=== PATIENT | male | born 1955 | race African-American/Black ===

== ENCOUNTER 2017-05-25 18:00 | Emergency (ER) | payer BC ==
[2017-05-25 18:38] LABS: #Basophils 0.1 thou/uL (0.0-0.2); #Eosinphils 0.3 thou/uL (0.0-0.7); #Lymphocytes 2.8 thou/uL (1.20-3.40); #Monocytes 0.5 thou/uL (0.11-0.59); #Neutrophils 4.9 thou/uL (1.40-6.50); %Lymphocytes 32.8 % (21.0-51.0); %Neutrophils 57.2 % (42.0-75.0); Hemoglobin 13.4 g/dL (14.0-18.0); Mean Corpuscular HGB CONC 32.4 g/dL (32.0-36.0); Mean Corpuscular Hemoglobin 27.7 pg (27.0-31.0); Mean Corpuscular Volume 85.5 fl (80.0-94.0); Mean Platelet Volume 8.6 fL (7.4-10.4); Platelet Count 252 thou/uL (130-400); RBC Distribution Width 16.7 % (11.5-14.5); Red Blood Cell (RBC) Count 4.86 mill/uL (4.70-6.10); White Blood Cell (WBC) Count 8.5 thou/uL (4.8-10.8)
[2017-05-25 18:58] LABS: ALT (SGPT) 20 U/L (8-55); AST (SGOT) 14 U/L (5-34); Albumin 3.7 g/dL (3.4-4.8); Alkaline Phosphatase 107 U/L (40-150); Anion Gap 17 mmol/L (10-20); BUN (Urea Nitrogen) 18 mg/dL (8.4-25.7); Bilirubin, Total 0.6 mg/dL (0.2-1.2); CK (CPK) 61 U/L (30-200); Calc. Creatinine Clearance 0 mL/min (70-130); Calcium 9.9 mg/dL (7.8-10.44); Carbon Dioxide 26 mmol/L (23-31); Chloride 102 mmol/L (98-107); Estimated GFR-MDRD 67; Globulin 3.3 g/dL (2.4-3.5); Glucose 277 mg/dL (80-115); Potassium 4.5 mmol/L (3.5-5.1); Sodium 140 mmol/L (136-145)
[2017-05-25 19:03] LABS: CKMB 0.5 ng/mL (0-6.6); Troponin I Less than 0.010 ng/mL (< 0.028)
--- NOTE | 2017-06-22 17:33 | EKG ---
Test Reason : DIZZINESS Blood Pressure : / mmHG Vent. Rate : 096 BPM Atrial Rate : 096 BPM P-R Int : 196 ms QRS Dur : 100 ms QT Int : 362 ms P-R-T Axes : 054 -37 035 degrees QTc Int : 457 ms Normal sinus rhythm Left axis deviation Moderate voltage criteria for LVH, may be normal variant Abnormal ECG Confirmed by JUNITO MENDES, TERESO ([id number]), newspaper editor ADITYA DENIS ([id number]) on 06/22/2017 5:33:11 PM Referred By: Confirmed By:TERESO WILD MD
== END 2017-05-25 21:38 | disposition home or self-care (01) ==
LOC: ERS 18:00
DX: R42 Dizziness and giddiness (principal); R53.1 Weakness; K21.9 Gastro-esophageal reflux disease without esophagitis; E11.9 Type 2 diabetes mellitus without complications; G47.30 Sleep apnea, unspecified; I10 Essential (primary) hypertension; I48.91 Unspecified atrial fibrillation; E66.9 Obesity, unspecified
CPT/HCPCS: 36415; 80053; 82553; 84484; 85025; 93005

== ENCOUNTER 2017-09-25 12:51 | Outpatient (CLI) | payer BC ==
--- NOTE | 2017-09-25 13:42 | RAD ---
PA AND LATERAL CHEST: HISTORY: Dyspnea. FINDINGS: Heart size and mediastinum are within normal limits. Lungs are clear of any infiltrative process. IMPRESSION: No active intrathoracic disease. POS: [facility]
== END 2017-09-25 12:52 | disposition home or self-care (01) ==
LOC: RAD 12:51
PROVIDERS: ATTEND Internal Medicine Pulmonary Disease
DX: R06.00 Dyspnea, unspecified (principal)
CPT/HCPCS: 71046

== ENCOUNTER 2018-01-31 09:12 | Outpatient (CLI) | payer BC ==
--- NOTE | 2018-01-31 10:49 | HP ---
DATE OF SERVICE: 01/31/2018 CHIEF COMPLAINT: Ulcer to the left great toe. HISTORY OF PRESENT ILLNESS: A 62-year-old male who presents today for an ulcer to his left great toe , he noticed that on Saturday. When he saw his perch machine inspector, Dr. Arcos on Saturday, who performed debride ment and get him doing daily dressing changes, put him into a boot and offloading pad in the boot and he has been referred to us for continued care. Denies any nausea, vomiting, fevers or chills. No a cute events since he was seen by Dr. Arcos on Saturday. PAST MEDICAL HISTORY: 1. High blood pressure. 2. Acid reflux. 3. Diabetes. MEDICATIONS: 1. Bystolic. 2. Metformin. PAST SURGICAL HISTORY: 1. Cataract surgery. 2. Pelvic surgery. ALLERGIES: 1. SHELLFISH. 2. IODINE. PAST FAMILY HISTORY AND SOCIAL HISTORY: Noncontributory. REVIEW OF SYSTEMS: Constitutional: Denies nausea, vomiting, fevers or chills. Neurological: Relat es some numbness in the feet. Dermatological: Relates wound to the left great toe. PHYSICAL EXAMINATION: VITAL SIGNS: Temperature 98.7, pulse 101, respirations 20, blood pressure 178/85. CARDIOVASCULAR: Dorsalis pedis, posterior tibial pulses are palpable bilaterally. There is immediat e capillary fill time to all the toes. No ischemic skin changes in bilateral lower extremities. The re is edema noted to bilateral lower extremities. NEUROLOGICAL: Light touch protective threshold is diminished globally bilaterally. DERMATOLOGICAL: Ulcer to left great toe distal tip measuring 1.7 cm x 2.0 cm x 0.1 cm of depth, 50% slough, 50% granulation tissue, minimal serosanguineous drainage. No malodor. There is some slight edema around the area of the wound. No ascending lymphangitis. No signs of bacterial infection. ASSESSMENT: 1. 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 2. Diabetes with peripheral neuropathy. PLAN: 1. No debridement was performed today as this was performed just on Saturday by Dr. Arcos, wound appe ars healthy at this time. 2. We are going to start him with daily Promogran dressing changes with gauze and Coban after cleans ing the wound thoroughly. 3. We are going to continue in the offloading boot with offloading pad. 4. Blood flow appears sufficient for healing. No further intervention required at this time for jyoti t. 5. The patient will follow up with me in 1 week for routine debridements and reevaluation and altera tion of treatment plan if deemed necessary.
[2018-01-31] MEDS ORDERED: Sodium Chloride 0.9% 15 ML NEB ONE (15:31)
== END 2018-01-31 09:13 | disposition home or self-care (01) ==
LOC: WCC 09:12
PROVIDERS: ATTEND Podiatrist Foot & Ankle Surgery
DX: E11.621 Type 2 diabetes mellitus with foot ulcer (principal); L97.529 Non-pressure chronic ulcer of other part of left foot with unspecified severity; E11.42 Type 2 diabetes mellitus with diabetic polyneuropathy
CPT/HCPCS: 97602; 99203; A4218; G0463

== ENCOUNTER 2018-02-07 09:57 | Outpatient (CLI) | payer BC ==
--- NOTE | 2018-02-07 11:16 | PRG ---
DATE OF SERVICE: 02/07/2018 SUBJECTIVE: A 62-year-old male returns today for followup left great toe ulceration. He has been do ing daily collagen, gauze and Coban dressing changes. No acute events since last visit. PHYSICAL EXAMINATION: Ulceration measuring 1.5 cm x 1.6 cm x 0.4 cm with 75% granulation tissue, 25% slough. No periwound erythema, edema or warmth. ASSESSMENT: Non-pressure chronic ulceration of left great toe, progressing well. PLAN: Full thickness debridement of the subcutaneous tissue layer removing all nonviable tissue and biofilm from the wound base down to bleeding granular wound base. Patient to continue with Promogran dressing changes on a daily basis. He will continue with the offloading boot at all times and follo w up with me in 1 week.
[2018-02-08] MEDS ORDERED: Sodium Chloride 0.9% 15 ML NEB ONE (08:45)
== END 2018-02-07 09:58 | disposition home or self-care (01) ==
LOC: WCC 09:57
PROVIDERS: ATTEND Podiatrist Foot & Ankle Surgery
DX: L97.529 Non-pressure chronic ulcer of other part of left foot with unspecified severity (principal)
CPT/HCPCS: 11042

== ENCOUNTER 2018-02-14 08:59 | Outpatient (CLI) | payer BC ==
--- NOTE | 2018-02-14 09:51 | PRG ---
DATE OF SERVICE: 02/14/2018 SUBJECTIVE: A 62-year-old male returns today for followup left great toe ulceration. He has continu ed to wear the boot for offloading purposes. He has had no problems with dressing changes over the l ast week. Denies acute events. PHYSICAL EXAMINATION: Ulceration to the left great toe measuring 1.3 cm x 1.4 cm x 0.1 cm of depth. There is a central tunnel which is about 0.5 cm of depth. It does not probe all the way to bone, al though it is close. There is soft tissue between the tunnel and the bone. 75% granulation tissue, 2 5% slough. No periwound erythema, edema or warmth. ASSESSMENT: Non-pressure chronic ulceration to the left great toe. PLAN: 1. Full thickness debridement of subcutaneous tissue layer removing all nonviable tissue and biofilm from the wound base down to bleeding granular wound base. 2. We are going to continue with daily Promogran dressing changes and have him start packing some of the collagen into the tunnel as well. 3. He will follow up with me in 1 week.
[2018-02-14] MEDS ORDERED: Sodium Chloride 0.9% 15 ML NEB ONE (15:55)
== END 2018-02-14 09:00 | disposition home or self-care (01) ==
LOC: WCC 08:59
PROVIDERS: ATTEND Podiatrist Foot & Ankle Surgery
DX: L97.529 Non-pressure chronic ulcer of other part of left foot with unspecified severity (principal)
CPT/HCPCS: 11042; 36415; 80048; A4218

== ENCOUNTER 2018-02-21 09:33 | Outpatient (CLI) | payer BC ==
--- NOTE | 2018-02-21 12:36 | PRG ---
DATE OF SERVICE: 02/21/2018 SUBJECTIVE: This is a 62-year-old male who presents today for followup left great toe ulceration. W e have been doing daily Promogran, gauze and Coban dressing changes. He states that about 2 days ago he noticed some discoloration to the toe and some peeling skin. He denies any nausea, vomiting, fev ers or chills at this time. PHYSICAL EXAMINATION: Left great toe maintains a wound on the distal aspect of the toe, although we have had black skin changes on the dorsal aspect of the entirety of the toe. The skin is beginning t o slough on debridement. The entirety of the skin has sloughed away from the hallux interphalangeal joint distally. The wound has a tunnel which goes directly to the bone. The bone is soft at the tip of the distal phalanx. There is some malodor and a small amount of purulent drainage from this area . The skin changes and discoloration stopped at the metatarsophalangeal joint do not continue on to the foot. There are no areas of fluctuance on the foot to indicate deep tissue abscess. No ascendin g lymphangitis. ASSESSMENT: 1. Non-pressure chronic ulceration to the left great toe with necrosis of bone and gangrenous change s to the left great toe. 2. Diabetes with peripheral neuropathy. PLAN: I am having the patient admitted to the hospital for IV antibiotics. We are going to obtain x -ray and MRI. He most likely will require surgical debridement, most likely amputation of the left g reat toe. I have discussed the case with the nurse practitioner in the ER and am having him transfer red over there now. We will follow up with him inpatient.
[2018-02-21] MEDS ORDERED: Sodium Chloride 0.9% 15 ML NEB ONE (15:41)
== END 2018-02-21 09:34 | disposition home or self-care (01) ==
LOC: WCC 09:33
PROVIDERS: ATTEND Podiatrist Foot & Ankle Surgery
DX: E11.621 Type 2 diabetes mellitus with foot ulcer (principal); L97.524 Non-pressure chronic ulcer of other part of left foot with necrosis of bone; E11.40 Type 2 diabetes mellitus with diabetic neuropathy, unspecified
CPT/HCPCS: 36416; A4218

== ENCOUNTER 2018-02-21 10:41 | Inpatient (IN) | payer BC ==
[2018-02-21 11:45] LABS: #Basophils 0.1 thou/uL (0.0-0.2); #Eosinphils 0.3 thou/uL (0.0-0.7); #Lymphocytes 1.3 thou/uL (1.20-3.40); #Monocytes 0.7 thou/uL (0.11-0.59); #Neutrophils 8.2 thou/uL (1.40-6.50); %Basophils 0.5 % (0.0-1.0); %Eosinophils 2.5 % (0.0-10.0); %Lymphocytes 12.7 % (21.0-51.0); %Neutrophils 77.3 % (42.0-75.0); Mean Corpuscular HGB CONC 30.8 g/dL (32.0-36.0); Mean Corpuscular Hemoglobin 25.7 pg (27.0-31.0); Mean Corpuscular Volume 83.6 fL (78.0-98.0); Mean Platelet Volume 7.3 fL (7.4-10.4); Platelet Count 366 thou/uL (130-400); RBC Distribution Width 16.8 % (11.5-14.5); Red Blood Cell (RBC) Count 4.28 mill/uL (4.70-6.10); White Blood Cell (WBC) Count 10.6 thou/uL (4.8-10.8)
--- NOTE | 2018-02-21 11:51 | RAD ---
LEFT FOOT THREE VIEWS: History: Toe infection. Comparison: None. FINDINGS: There is a soft tissue defect of the distal pharynx of the large toe with erosion of the cortex media lly. There is extensive soft tissue swelling. Extensive phleboliths in the soft tissues. IMPRESSION: Osteomyelitis of the great toe distal phalanx. POS: [facility]
[2018-02-21 12:13] LABS: ALT (SGPT) 74 U/L (8-55); AST (SGOT) 41 U/L (5-34); Albumin 3.4 g/dL (3.4-4.8); Alkaline Phosphatase 161 U/L (40-150); Anion Gap 13 mmol/L (10-20); BUN (Urea Nitrogen) 11 mg/dL (8.4-25.7); Bilirubin, Total 0.6 mg/dL (0.2-1.2); Calc. Creatinine Clearance 0 mL/min (70-130); Calcium 9.3 mg/dL (7.8-10.44); Carbon Dioxide 25 mmol/L (23-31); Chloride 107 mmol/L (98-107); Estimated GFR-MDRD 86; Globulin 3.5 g/dL (2.4-3.5); Glucose 112 mg/dL (80-115); Potassium 4.1 mmol/L (3.5-5.1); Protein, Total 6.9 g/dL (5.8-8.1); Sodium 141 mmol/L (136-145)
[2018-02-21] MEDS ORDERED: Piperacillin/Tazobactam 4.5 GM VIAL ONE (12:50)
[2018-02-21 13:13] LABS: PTT 41.5 SEC (22.9-36.1); Prothrombin Time 13.5 SEC (12.0-14.7)
--- NOTE | 2018-02-21 14:46 | HP ---
DATE OF ADMISSION: 02/21/2018 PRIMARY CARE PHYSICIAN: Helen Burr M.D. REASON FOR ADMISSION: Left great toe osteomyelitis. HISTORY OF PRESENT ILLNESS: A 62-year-old male who has multiple medical problems in cluding diabetes, hypertension, dyslipidemia, morbid obesity and gastroesophageal reflux disease who has ulcer over left great toe for the last 3 weeks. The patient is following the Wound Care team for the last 3 weeks. He is going to Wound Care team every week. The patient reports that he first ketty mona saw his food dehydrator operator, Dr. Arcos and he had minor ulcer. At that time, minor debridement was performe d by him and subsequently he was getting wound care through our hospital. The patient is not sure ho w he got this ulcer on the great toe, but he attributes to his boot. He had no fever or chills, but he noticed that a foul smelling purulent material was draining from the great toe and it was not impr oving. Today, the patient was evaluated at wound care team and they did x-ray, which was consistent with lef t great toe osteomyelitis. The patient was sent to emergency room from [facility] and now we are admitting for left great toe osteomyelitis. The patient will need surgery. PAST MEDICAL HISTORY: Diabetes type 2, morbid obesity, hypertension, dyslipidemia, gastroesophageal reflux disease, sleep apnea, paroxysmal atrial fibrillation. PAST SURGICAL HISTORY: Right knee surgery, ablation for atrial fibrillation. PAST PSYCHIATRIC HISTORY: Reviewed and negative. SOCIAL HISTORY: The patient is a former smoker. He quit smoking more than 20 years ago. He denies any alcohol or other illicit drug abuse. He is working as a shift supervisor manager food beverage. FAMILY HISTORY: Diabetes, hypertension runs among several family members. No family history of marina nary artery disease, stroke or cancer. EMERGENCY ROOM COURSE: The patient has received vancomycin, Zosyn and IV fluid. ALLERGIES: IODINE and SHELLFISH. CURRENT HOME MEDICATIONS: Zocor 20 mg p.o. daily, Bystolic 20 mg twice daily, amlodipine 10 mg p.o. daily, aspirin 325 mg p.o. daily, metformin 500 mg p.o. b.i.d. REVIEW OF SYSTEMS: The following complete review of systems was negative, unless otherwise mentioned in the HPI or below: Constitutional: Weight loss or gain, ability to conduct usual activities. Sk in: Rash, itching. Eyes: Double vision, pain. ENT/Mouth: Nose bleeding, neck stiffness, pain, te nderness. Cardiovascular: Palpitations, dyspnea on exertion, orthopnea. Respiratory: Shortness of breath, wheezing, cough, hemoptysis, fever or night sweats. Gastrointestinal: Poor appetite, abdom inal pain, heartburn, nausea, vomiting, constipation, or diarrhea. Genitourinary: Urgency, frequenc y, dysuria, nocturia. Musculoskeletal: Pain, swelling. Neurologic/Psychiatric: Anxiety, depressio n. Allergy/Immunologic: Skin rash, bleeding tendency. Please see my HPI for pertinent positive and negative. All other review of systems reviewed and negative except as mentioned in the HPI. PHYSICAL EXAMINATION: VITAL SIGNS: Currently, blood pressure 147/77, pulse 87, respiratory rate 18, temperature 98.1, satu ration 100% on room air, weight 167.3 kilograms. GENERAL: The patient is currently alert and awake, in no obvious acute distress. HEAD: Normocephalic, atraumatic. EYES: Pupils round and reactive to light. Extraocular muscles intact. ENT: Oropharynx within normal limits. Moist mucous membrane. No oral lesion, no pharyngeal erythem a, no exudate. NECK: Supple, no JVD, no thyromegaly, no carotid bruit, no jugular venous distention. LUNGS: Clear to auscultation without any rhonchi or rales. CARDIAC: S1, S2 regular without any murmur. ABDOMEN: Morbid obesity present. Bowel sounds present, nontender, nondistended. No organomegaly, n o mass, no suprapubic tenderness. BACK: Unremarkable. No CVA tenderness. EXTREMITIES: Upper extremities, passive movement of all joints are normal. Lower extremities, bilat eral trace lower extremity edema noted. The patient does have left great toe swollen, tender and heather thematous with serosanguineous fluid noted. Sensation reduced on both feet. NEUROLOGIC: Nonfocal examination. SKIN: No skin rash. HEMATOLOGIC: No lymphadenopathy. PSYCHIATRIC: Normal affect. SIGNIFICANT LABORATORY DATA: X-ray of foot consistent with osteomyelitis of left great toe. BMP, so dium 141, potassium 4.1, chloride 107, carbon dioxide 25, BUN 11, creatinine 1.05, glucose 112, calci um 9.3. LFT, protein 6.9, albumin 3.4, AST 41, ALT 74, alkaline phosphatase 161. CBC, WBC 10.6, hem oglobin 11.0, platelet 366,000. ASSESSMENT: 1. Sepsis due to left great toe osteomyelitis. 2. Diabetic foot infection with cellulitis of left foot. 3. Diabetes type 2. 4. Hypertension. 5. Gastroesophageal reflux disease. 6. Morbid obesity with obstructive sleep apnea. 7. Gastroesophageal reflux disease. PLAN: Full admission to medical floor. Empiric antibiotic therapy with vancomycin and Zosyn. Noemi martinezt will be consulted. The patient will need amputation of left great toe that was discussed with the patient and the patient agreed to proceed. Hyperglycemia protocol treatment. We will verify the patient's home medication and resume while in hospital. Deep venous thrombosis prophylaxis, Lovenox 40 mg subcu daily. Gastrointestinal prophylaxis, Pepcid 20 mg p.o. b.i.d. Code status, the patient is full code. The patient's is surrogate decision maker. Disposition plan based on clinical course. We are expecting the patient's stay in hospital more than 2 midnights. Plan of care discussed with the patient and family member at bedside in the emergency room.
[2018-02-21] MEDS ORDERED: Acetaminophen 325 MG TAB PO PRN ×2 (15:33→15:45)
[2018-02-21] MEDS ORDERED: Diabetic Tussin 200 MG/10 ML UDCUP PO PRN (15:45)
[2018-02-21] MEDS ORDERED: Dextrose 50% Abboject 50 ML SYRINGE SLOW IVP PRN (15:45)
[2018-02-21] MEDS ORDERED: HumaLOG 300 UNITS/3 ML VIAL SC PRN ×2 (15:45)
[2018-02-21] MEDS ORDERED: Eucerin (Mineral Oil/Petrolatum,White) 30 gm Jar TOP PRN (15:45)
[2018-02-21] MEDS ORDERED: Morphine 2 MG/ML SYRINGE SLOW IVP PRN (15:45)
[2018-02-21] MEDS ORDERED: hydrALAZINE 20 MG/ML VIAL SLOW IVP PRN (15:45)
[2018-02-21] MEDS ORDERED: Dextrose 5% in Water 1,000 ML IV PRN (15:45)
[2018-02-21] MEDS ORDERED: Ondansetron PF 4 MG/2 ML Vial IVP PRN (15:45)
[2018-02-21] MEDS ORDERED: Loratadine 10 MG TAB PO PRN (15:45)
[2018-02-21] MEDS ORDERED: Ondansetron ODT 4 MG TAB PO PRN (15:45)
[2018-02-21] MEDS ORDERED: Calcium Carbonate 500 MG ChewTAB PO PRN (15:45)
[2018-02-21] MEDS ORDERED: Artificial Tears 18 DROP/0.9 ML EA EYE PRN (15:45)
[2018-02-21] MEDS ORDERED: Bisacodyl 10 MG SUPP PR PRN (15:45)
[2018-02-21] MEDS ORDERED: Sodium Chloride 0.65% Nasal 44 ML BOT EA NARE PRN (15:45)
[2018-02-21] MEDS ORDERED: Bisacodyl 5 MG TAB PO PRN (15:45)
[2018-02-21] MEDS ORDERED: Senokot S 8.6-50 MG TAB PO PRN (15:45)
[2018-02-21] MEDS ORDERED: Zolpidem Tartrate 5 MG TAB PO PRN (15:45)
[2018-02-21] MEDS ORDERED: Loperamide HCl 2 MG CAP PO PRN (15:45)
[2018-02-21 15:58] VITALS: BMI 44.4
[2018-02-21] MEDS: Piperacillin/Tazobactam 4.5 GM in Sodium Chloride 0.9% 100 ML IVPB SCH (17:30)
[2018-02-21] MEDS: Nebivolol HCl 5 MG TAB PO SCH (20:27)
[2018-02-21] MEDS: Atorvastatin Calcium 40 MG TAB PO SCH (20:27)
[2018-02-21] MEDS: Famotidine 20 MG TAB PO SCH (20:28)
[2018-02-21] MEDS: metFORMIN XR 500 MG TAB PO SCH (20:29)
[2018-02-21] MEDS ORDERED: Lactated Ringer's 1,000 ML IV SCH (23:59)
[2018-02-22] MEDS: Piperacillin/Tazobactam 4.5 GM in Sodium Chloride 0.9% 100 ML IVPB SCH ×5 (00:22→23:19)
[2018-02-22 04:26] LABS: #Eosinphils 0.3 thou/uL (0.0-0.7); #Lymphocytes 1.5 thou/uL (1.20-3.40); #Monocytes 0.9 thou/uL (0.11-0.59); #Neutrophils 6.2 thou/uL (1.40-6.50); %Basophils 0.4 % (0.0-1.0); %Eosinophils 3.6 % (0.0-10.0); %Lymphocytes 16.6 % (21.0-51.0); %Monocytes 9.6 % (0.0-10.0); %Neutrophils 69.8 % (42.0-75.0); Hemoglobin 9.4 g/dL (14.0-18.0); Mean Corpuscular HGB CONC 31.2 g/dL (32.0-36.0); Mean Corpuscular Hemoglobin 26.1 pg (27.0-31.0); Mean Corpuscular Volume 83.8 fL (78.0-98.0); Mean Platelet Volume 7.5 fL (7.4-10.4); Platelet Count 353 thou/uL (130-400); RBC Distribution Width 16.6 % (11.5-14.5); White Blood Cell (WBC) Count 8.9 thou/uL (4.8-10.8)
[2018-02-22 04:55] LABS: Anion Gap 12 mmol/L (10-20); BUN (Urea Nitrogen) 10 mg/dL (8.4-25.7); Calc. Creatinine Clearance 180 mL/min (70-130); Calcium 8.7 mg/dL (7.8-10.44); Carbon Dioxide 25 mmol/L (23-31); Chloride 107 mmol/L (98-107); Estimated GFR-MDRD Greater than 90; Glucose 132 mg/dL (80-115); Potassium 4.3 mmol/L (3.5-5.1); Sodium 140 mmol/L (136-145)
[2018-02-22] MEDS: Nebivolol HCl 5 MG TAB PO SCH ×2 (05:34→20:13)
[2018-02-22] MEDS ORDERED: Bupivacaine PF 0.5% 30 ML VIAL ONE (07:17)
[2018-02-22] MEDS ORDERED: Neomycin-Polymyxin 1 ML AMP ONE ×2 (07:17→08:21)
[2018-02-22] MEDS ORDERED: Fentanyl 100 MCG/2 ML VIAL ONE (07:23)
[2018-02-22 08:06] LABS: ALT (SGPT) 53 U/L (8-55); AST (SGOT) 37 U/L (5-34); Albumin 2.8 g/dL (3.4-4.8); Alkaline Phosphatase 140 U/L (40-150); Bilirubin, Direct 0.3 mg/dL (0.1-0.3); Bilirubin, Total 0.8 mg/dL (0.2-1.2); Protein, Total 6.2 g/dL (5.8-8.1)
[2018-02-22 08:26] LABS: HBCM Index 0.14 S/CO (0-0.79); HBSAg Index 0.19 S/CO (0-0.99); Hep A IgM AB Non-Reactive (NonReactive); Hep A IgM S/CO 0.11 S/CO (0-0.79); Hep B Surf Ag Non-Reactive S/CO (NonReactive); Hep C IgG Ab Non-Reactive (NonReactive); Hep C Index 0.07 S/CO (0-0.79); Hepatitis B Core IgM Abs Non-Reactive (NonReactive)
[2018-02-22] MEDS ORDERED: DAPAGLIFLOZIN PO SCH (09:00)
[2018-02-22] MEDS ORDERED: Non-Formulary Item 1 EACH (Amlodipine Besylate/Benazepril [Amlodipine Besylate/Benazepril PO SCH (09:00)
[2018-02-22] MEDS ORDERED: Ondansetron HCl/PF 4 MG/2 ML Vial IVP PRN (09:14)
--- NOTE | 2018-02-22 09:37 | PDOC.PN ---
- Subjective Encounter Start Date: 02/22/18 Encounter Start Time: 13:22 -: old records requested/rev Patient seen and examined. No new complaints. No overnight events s/p toe amputation - Objective Resuscitation Status: Resuscitation Status FULL:Full Resuscitation MAR Reviewed: Yes Vital Signs & Weight: Vital Signs (12 hours) Temp Pulse Resp BP Pulse Ox 02/22/18 08:00 95 02/22/18 07:27 98.0 F 85 18 175/92 H 95 02/22/18 05:48 93 L 02/22/18 03:59 98.7 F 82 20 168/78 H 94 L 02/22/18 00:00 98.9 F 84 20 162/76 H 94 L 02/21/18 23:00 94 L Weight Weight 365 lb 8 oz Result Diagrams: 02/22/18 03:50 02/22/18 03:50 Additional Labs: Accuchecks 02/21/18 17:00 POC Glucose 120 H Phys Exam - Physical Examination Constitutional: NAD HEENT: PERRLA, moist MMs, sclera anicteric Neck: no JVD, supple Respiratory: no wheezing, no rales, no rhonchi Cardiovascular: RRR, no significant murmur, no rub Gastrointestinal: soft, non-tender, no distention, positive bowel sounds Musculoskeletal: no edema, pulses present left toe with dressing Neurological: non-focal, normal sensation, moves all 4 limbs Lymphatic: no nodes Psychiatric: normal affect, A&O x 3 Skin: no rash, normal turgor Dx/Plan (1) Acute osteomyelitis of toe of left foot Code(s): M86.172 - OTHER ACUTE OSTEOMYELITIS, LEFT ANKLE AND FOOT Status: Acute (2) Abnormal LFTs Code(s): R94.5 - ABNORMAL RESULTS OF LIVER FUNCTION STUDIES Status: Acute Comment: s/p toe amputation, left great toe (3) Anemia, normocytic normochromic Code(s): D64.9 - ANEMIA, UNSPECIFIED Status: Chronic (4) Diabetes type 2, controlled Code(s): E11.9 - TYPE 2 DIABETES MELLITUS WITHOUT COMPLICATIONS Status: Chronic (5) Dyslipidemia Code(s): E78.5 - HYPERLIPIDEMIA, UNSPECIFIED Status: Chronic (6) GERD (gastroesophageal reflux disease) Code(s): K21.9 - GASTRO-ESOPHAGEAL REFLUX DISEASE WITHOUT ESOPHAGITIS Status: Chronic (7) Hypertension Code(s): I10 - ESSENTIAL (PRIMARY) HYPERTENSION Status: Chronic (8) Morbid obesity with BMI of 40.0-44.9, adult Code(s): E66.01 - MORBID (SEVERE) OBESITY DUE TO EXCESS CALORIES; Z68.41 - BODY MASS INDEX (BMI) 40.0-44.9, ADULT Status: Chronic (9) ANDREW (obstructive sleep apnea) Code(s): G47.33 - OBSTRUCTIVE SLEEP APNEA (ADULT) (PEDIATRIC) Status: Chronic Comment: on CPAP - Plan cont current plan of care, plan discussed w/ family, continue antibiotics * continue post operative wound care * pain control * continue vancomycin and zosyn * home medication reconciled * medication reviewed as below * symptomatic treatment * follow culture result. Review of Systems - Review of Systems ENT: negative: Ear Pain, Ear Discharge, Nose Pain, Nose Discharge, Nose Congestion, Mouth Pain, Mouth Swelling, Throat Pain, Throat Swelling, Other Respiratory: negative: Cough, Dry, Shortness of Breath, Hemoptysis, SOB with Excertion, Pleuritic Pain, Sputum, Wheezing Cardiovascular: negative: chest pain, palpitations, orthopnea, paroxysmal nocturnal dyspnea, edema, light headedness, other Gastrointestinal: negative: Nausea, Vomiting, Abdominal Pain, Diarrhea, Constipation, Melena, Hematochezia, Other Genitourinary: negative: Dysuria, Frequency, Incontinence, Hematuria, Retention , Other Musculoskeletal: negative: Neck Pain, Shoulder Pain, Arm Pain, Back Pain, Hand Pain, Leg Pain, Foot Pain, Other Skin: negative: Rash, Lesions, Odin, Bruising, Other - Medications/Allergies Allergies/Adverse Reactions: Allergies Allergy/AdvReac Type Severity Reaction Status Date / Time iodine Allergy Verified 12/13/15 16:12 latex Allergy Verified 12/13/15 16:12 shellfish derived Allergy Verified 12/13/15 16:12 Medications: Current Medications Acetaminophen (Tylenol) 650 mg PO Q4H PRN PRN Reason: Headache/Fever/Mild Pain (1-3) Hydrocodone Bitart/Acetaminophen ([place] 5/325) 1 tab PO Q4H PRN PRN Reason: Moderate Pain (4-6) Amlodipine Besylate (Norvasc) 10 mg PO DAILY [facility] Artificial Tears (Tears Naturale) 2 drop EA EYE PRN PRN PRN Reason: Dry Eyes Aspirin (Aspirin) 325 mg PO QAM [facility] Atorvastatin Calcium (Lipitor) 40 mg PO HS [facility] Last Admin: 02/21/18 20:27 Dose: 40 mg Atorvastatin Calcium (Lipitor) 10 mg PO HS [facility] Benazepril HCl (Lotensin) 40 mg PO QAM [facility] Bisacodyl (Dulcolax) 10 mg PO DAILYPRN PRN PRN Reason: Constipation Bisacodyl (Dulcolax) 10 mg DC DAILYPRN PRN PRN Reason: Constipation Calcium Carbonate (Tums) 1,000 mg PO Q4H PRN PRN Reason: Heartburn or Indigestion Cholecalciferol (Vitamin D3) 5,000 units PO HS [facility] Dextrose/Water (Dextrose 50%) 25 gm SLOW IVP PRN PRN PRN Reason: Hypoglycemia Enoxaparin Sodium (Lovenox) 40 mg SC 0900 [facility] Famotidine (Pepcid) 20 mg PO BID [facility] Last Admin: 02/21/18 20:28 Dose: 20 mg Fentanyl (Pacu-Sublimaze) 50 mcg SLOW IVP Q10MIN PRN PRN Reason: Moderate to Severe Pain (6-10) Stop: 02/22/18 12:14 Glucagon (Glucagon) 1 mg IM PRN PRN PRN Reason: Hypoglycemia Guaifenesin (Robitussin Sf) 200 mg PO Q4H PRN PRN Reason: Cough Hydralazine HCl (Apresoline) 10 mg SLOW IVP Q4H PRN PRN Reason: SBP > 180 and HR < 70 Dextrose/Water (D5w) 1,000 mls @ 0 mls/hr IV .Q0M PRN PRN Reason: Hypoglycemia Piperacillin Sod/Tazobactam (Sod 4.5 gm/ Sodium Chloride) 100 mls @ 200 mls/hr IVPB Q6HR [facility] Last Admin: 02/22/18 05:33 Dose: 100 mls Vancomycin HCl 2 gm/ Sodium (Chloride) 500 mls @ 250 mls/hr IVPB 0200,1400 [facility] Last Admin: 02/22/18 01:35 Dose: 500 mls Insulin Human Lispro (Humalog) 0 units SC .MODERATE SLIDING SC PRN PRN Reason: Moderate Correctional Scale Insulin Human Lispro (Humalog) 0 units SC .BEDTIME SLIDING SC PRN PRN Reason: Bedtime Correctional Scale Iron/Minerals/Multivitamins (Theragran M) 1 tab PO HS [facility] Loperamide HCl (Imodium) 2 mg PO PRN PRN PRN Reason: Diarrhea/Loose Stools Loratadine (Claritin) 10 mg PO DAILYPRN PRN PRN Reason: Sinus Symptoms Metformin HCl (Glucophage Xr) 1,000 mg PO BID [facility] Last Admin: 02/21/18 20:29 Dose: Not Given Mineral Oil/White Petrolatum (Eucerin Cream) 0 gm TOP BIDPRN PRN PRN Reason: Dry Skin Miscellaneous Medication (Pharmacy To Dose) 1 each IVPB ONE PRN PRN Reason: Pharmacy to dose Stop: 03/03/18 15:46 Morphine Sulfate (Morphine) 2 mg SLOW IVP Q4H PRN PRN Reason: Pain Nebivolol (Bystolic) 20 mg PO BID [facility] Last Admin: 02/22/18 05:34 Dose: 20 mg (Dapagliflozin (Farxiga) 0 tab PO QAM [facility] Non-Formulary Medication (Insulin Glargine,Hum.Rec.Anlog [Basaglar Kwikpen U-100 ]) 80 unit SQ AC [facility] Ondansetron HCl (Zofran Odt) 4 mg PO Q6H PRN PRN Reason: Nausea/Vomiting Ondansetron HCl (Zofran) 4 mg IVP Q6H PRN PRN Reason: Nausea/Vomiting Ondansetron HCl (Pacu-Zofran) 4 mg IVP ONE PRN PRN Reason: Nausea/Vomiting Stop: 02/22/18 12:14 Saccharomyces Boulardii (Florastor) 250 mg PO DAILY [facility] Senna/Docusate Sodium (Senokot S) 2 tab PO BID PRN PRN Reason: Constipation Sodium Chloride ([place] Nasal Christmas 0.65%) 0 ml EA NARE QIDPRN PRN PRN Reason: Nasal Congestion Zolpidem Tartrate (Ambien) 5 mg PO HSPRN PRN PRN Reason: Insomnia
--- NOTE | 2018-02-22 09:39 | OP ---
DATE OF PROCEDURE: 02/21/2018 SURGEON: Abdelrahman Driver DPM. PREOPERATIVE DIAGNOSES: Osteomyelitis, gangrene left hallux. POSTOPERATIVE DIAGNOSES: Osteomyelitis, gangrene left hallux. PROCEDURES PERFORMED: Amputation of left hallux through the first metatarsal. ANESTHESIA: Local with monitored anesthetic care. HEMOSTASIS: Pneumatic tourniquet about the left ankle at 250 mmHg. ESTIMATED BLOOD LOSS: Less than 5 mL. MATERIALS: 1. 4-0 Vicryl. 2. 3-0 nylon. INJECTABLES: 10 mL of 0.5% Marcaine plain preoperatively. COMPLICATIONS: None. SUMMARY OF PROCEDURE: Patient was brought into the operative suite, placed supine on the operative t able. Time out performed identifying correct patient, procedure, and operative site. A well-padded tourniquet placed about the left ankle. Foot was prepped and draped in an aseptic manner. Tournique t was raised to 250 mmHg. A fishmouth incision made around the first metatarsophalangeal joint, ampu tating the toe fully through the first metatarsophalangeal joint. A culture was taken from the dista l phalanx bone and sent for Gram stain, aerobic and anaerobic cultures. The remainder of the toe ernesto l be sent to pathology for gross microscopic evaluation. Soft tissues surrounding the first metatars ophalangeal joint appeared healthy without signs of infection or liquefaction. The head of the first metatarsal was resected with power saw and the sesamoid apparatus was removed in order to facilitate closure of the wound. The wound was then irrigated with 3 liters of normal saline mixed with 3 unit s of by pulsed lavage. Subcutaneous tissues were then reapproximated with 4-0 Vicryl and the skin with 3-0 nylon. Bandages applied including Xeroform gauze, roll gauze, and Link wrap. Tourniquet wa s released noting immediate hyperemia to the distal aspect of all remaining toes. The patient tolera lara the procedure and anesthesia well and was transferred out of the operative suite with vital signs stable and neurovascular status intact to the left lower extremity. He will be transferred back to his room. Once the sensitivities from the cultures are obtained, he can be switched to p.o. antibiot ics for the foot. He will be stable to be discharged home. He will follow up with me in the [facility] in 1 week.
[2018-02-22] MEDS ORDERED: Lidocaine 1% PF 5 ML VIAL ONE (10:16)
[2018-02-22] MEDS ORDERED: PROPOFOL 200 MG/20 ML VIAL ONE (10:16)
[2018-02-22] MEDS ORDERED: Ondansetron PF 4 MG/2 ML Vial ONE (10:16)
--- NOTE | 2018-02-22 10:29 | RAD ---
LEFT FOOT 2 VIEWS: Date: 02/22/18 HISTORY: Amputation. COMPARISON: Radiograph prior day. FINDINGS: There is amputation through the great toe metatarsal neck. Expected postoperative gas and edema. IMPRESSION: Satisfactory postoperative appearance. POS: [facility]
[2018-02-22] MEDS: Amlodipine 10 MG TAB PO SCH (10:59)
[2018-02-22] MEDS: Saccharomyces boulardii 250 MG CAP PO SCH (10:59)
[2018-02-22] MEDS: Aspirin 325 MG TAB PO SCH (11:00)
[2018-02-22] MEDS: Famotidine 20 MG TAB PO SCH ×2 (11:02→20:12)
[2018-02-22] MEDS: Enoxaparin Sodium 40 MG/0.4 ML SYRINGE SC SCH (11:03)
[2018-02-22] MEDS: metFORMIN XR 500 MG TAB PO SCH ×2 (12:32→17:44)
[2018-02-22] MEDS: HYDROcodone/Acetaminophen 5/325 mg Tablet PO PRN ×2 (12:35→17:37)
[2018-02-22] MEDS: Atorvastatin Calcium 10 MG TAB PO SCH (20:12)
[2018-02-22] MEDS: Atorvastatin Calcium 40 MG TAB PO SCH (20:12)
[2018-02-22] MEDS: Multivitamin W/ Minerals 1 TAB PO SCH (20:13)
[2018-02-23 01:26] LABS: Vancomycin, Trough 29.4 ug/mL
[2018-02-23] MEDS: HYDROcodone/Acetaminophen 5/325 mg Tablet PO PRN ×3 (02:06→17:30)
[2018-02-23] MEDS: Piperacillin/Tazobactam 4.5 GM in Sodium Chloride 0.9% 100 ML IVPB SCH ×3 (05:36→17:31)
[2018-02-23] MEDS: Aspirin 325 MG TAB PO SCH (08:13)
[2018-02-23] MEDS: Amlodipine 10 MG TAB PO SCH (08:14)
[2018-02-23] MEDS: Famotidine 20 MG TAB PO SCH ×2 (08:14→20:50)
[2018-02-23] MEDS: metFORMIN 500 MG TAB PO SCH ×2 (08:14→17:30)
[2018-02-23] MEDS: Enoxaparin Sodium 40 MG/0.4 ML SYRINGE SC SCH (08:16)
[2018-02-23] MEDS: Nebivolol HCl 5 MG TAB PO SCH ×2 (08:21→20:50)
[2018-02-23] MEDS: Saccharomyces boulardii 250 MG CAP PO SCH (08:29)
[2018-02-23] MEDS ORDERED: [UNRECOGNIZED DRUG - OTHER] SQ SCH (09:00)
[2018-02-23] MEDS ORDERED: INSULIN GLARGINE HUM REC ANLOG SQ SCH (09:00)
--- NOTE | 2018-02-23 10:32 | PDOC.PN ---
- Subjective Encounter Start Date: 02/23/18 Encounter Start Time: 08:50 Patient seen and examined. No new complaints. No overnight events - Objective Resuscitation Status: Resuscitation Status FULL:Full Resuscitation MAR Reviewed: Yes Vital Signs & Weight: Vital Signs (12 hours) Temp Pulse Resp BP BP Pulse Ox 02/23/18 08:15 156/70 H 02/23/18 08:14 83 156/70 H 02/23/18 08:00 98.9 F 83 18 156/70 H 95 02/23/18 04:00 94 L Weight Admit Weight 365 lb 8 oz Weight 365 lb 8 oz Result Diagrams: 02/22/18 03:50 02/22/18 03:50 Additional Labs: Accuchecks 02/23/18 02/23/18 02/22/18 05:35 02:03 21:11 POC Glucose 242 H 254 H 313 H 02/22/18 02/22/18 02/22/18 20:10 16:21 12:03 POC Glucose 276 H 287 H 220 H Phys Exam - Physical Examination Constitutional: NAD HEENT: PERRLA, moist MMs, sclera anicteric Neck: no JVD, supple Respiratory: no wheezing, no rales, no rhonchi Cardiovascular: RRR, no significant murmur, no rub Gastrointestinal: soft, non-tender, no distention, positive bowel sounds Musculoskeletal: no edema, pulses present left foot with dressing Neurological: non-focal, normal sensation, moves all 4 limbs Psychiatric: normal affect, A&O x 3 Skin: no rash, normal turgor Dx/Plan (1) Acute osteomyelitis of toe of left foot Code(s): M86.172 - OTHER ACUTE OSTEOMYELITIS, LEFT ANKLE AND FOOT Status: Acute (2) Abnormal LFTs Code(s): R94.5 - ABNORMAL RESULTS OF LIVER FUNCTION STUDIES Status: Acute Comment: s/p toe amputation, left great toe (3) Anemia, normocytic normochromic Code(s): D64.9 - ANEMIA, UNSPECIFIED Status: Chronic (4) Diabetes type 2, controlled Code(s): E11.9 - TYPE 2 DIABETES MELLITUS WITHOUT COMPLICATIONS Status: Chronic (5) Dyslipidemia Code(s): E78.5 - HYPERLIPIDEMIA, UNSPECIFIED Status: Chronic (6) GERD (gastroesophageal reflux disease) Code(s): K21.9 - GASTRO-ESOPHAGEAL REFLUX DISEASE WITHOUT ESOPHAGITIS Status: Chronic (7) Hypertension Code(s): I10 - ESSENTIAL (PRIMARY) HYPERTENSION Status: Chronic (8) Morbid obesity with BMI of 40.0-44.9, adult Code(s): E66.01 - MORBID (SEVERE) OBESITY DUE TO EXCESS CALORIES; Z68.41 - BODY MASS INDEX (BMI) 40.0-44.9, ADULT Status: Chronic (9) ANDREW (obstructive sleep apnea) Code(s): G47.33 - OBSTRUCTIVE SLEEP APNEA (ADULT) (PEDIATRIC) Status: Chronic Comment: on CPAP - Plan cont current plan of care, continue antibiotics * medication reviewed as below * symptomatic treatment * continue wound care * follow on pathology report * continue vancomycin and zosyn. Review of Systems - Review of Systems ENT: negative: Ear Pain, Ear Discharge, Nose Pain, Nose Discharge, Nose Congestion, Mouth Pain, Mouth Swelling, Throat Pain, Throat Swelling, Other Respiratory: negative: Cough, Dry, Shortness of Breath, Hemoptysis, SOB with Excertion, Pleuritic Pain, Sputum, Wheezing Cardiovascular: negative: chest pain, palpitations, orthopnea, paroxysmal nocturnal dyspnea, edema, light headedness, other Gastrointestinal: negative: Nausea, Vomiting, Abdominal Pain, Diarrhea, Constipation, Melena, Hematochezia, Other Genitourinary: negative: Dysuria, Frequency, Incontinence, Hematuria, Retention , Other Musculoskeletal: negative: Neck Pain, Shoulder Pain, Arm Pain, Back Pain, Hand Pain, Leg Pain, Foot Pain, Other Skin: negative: Rash, Lesions, Odin, Bruising, Other - Medications/Allergies Allergies/Adverse Reactions: Allergies Allergy/AdvReac Type Severity Reaction Status Date / Time iodine Allergy Verified 12/13/15 16:12 latex Allergy Verified 12/13/15 16:12 shellfish derived Allergy Verified 12/13/15 16:12 Medications: Current Medications Acetaminophen (Tylenol) 650 mg PO Q4H PRN PRN Reason: Headache/Fever/Mild Pain (1-3) Hydrocodone Bitart/Acetaminophen ([place] 5/325) 1 tab PO Q4H PRN PRN Reason: Moderate Pain (4-6) Last Admin: 02/23/18 02:06 Dose: 1 tab Amlodipine Besylate (Norvasc) 10 mg PO DAILY [facility] Last Admin: 02/23/18 08:14 Dose: 10 mg Artificial Tears (Tears Naturale) 2 drop EA EYE PRN PRN PRN Reason: Dry Eyes [facility]) [facility] [place] Last Admin: 02/23/18 08:13 Dose: 325 mg Atorvastatin Calcium (Lipitor) 40 mg PO [facility] Last Admin: 02/22/18 20:12 Dose: 40 mg Atorvastatin Calcium (Lipitor) 10 mg PO HS [facility] Last Admin: 02/22/18 20:12 Dose: 10 mg Benazepril HCl (Lotensin) [facility] [place] Last Admin: 02/23/18 08:15 Dose: 40 mg Bisacodyl (Dulcolax) 10 mg PO DAILYPRN PRN PRN Reason: Constipation Bisacodyl (Dulcolax) 10 mg [place] DAILYPRN PRN PRN Reason: Constipation Calcium Carbonate (Tums) 1,000 mg PO Q4H PRN PRN Reason: Heartburn or Indigestion Cholecalciferol (Vitamin D3) 5,000 units PO [facility] Last Admin: 02/22/18 20:12 Dose: 5,000 units Dextrose/Water (Dextrose 50%) 25 gm SLOW IVP PRN PRN PRN Reason: Hypoglycemia Enoxaparin Sodium (Lovenox) 40 mg SC 0900 [facility] Last Admin: 02/23/18 08:16 Dose: 40 mg Famotidine (Pepcid) 20 mg PO BID [facility] Last Admin: 02/23/18 08:14 Dose: 20 mg Glucagon (Glucagon) 1 mg IM PRN PRN PRN Reason: Hypoglycemia Guaifenesin (Robitussin Sf) 200 mg PO Q4H PRN PRN Reason: Cough Hydralazine HCl (Apresoline) 10 mg SLOW IVP Q4H PRN PRN Reason: SBP > 180 and HR < 70 Dextrose/Water (D5w) 1,000 mls @ 0 mls/hr IV .Q0M PRN PRN Reason: Hypoglycemia Piperacillin Sod/Tazobactam (Sod 4.5 gm/ Sodium Chloride) 100 mls @ 200 mls/hr IVPB Q6HR [facility] Last Admin: 02/23/18 05:36 Dose: 100 mls Vancomycin HCl 1.25 gm/ Sodium (Chloride) 250 mls @ 125 mls/hr IVPB 0200,1400 [facility] Insulin Human Lispro (Humalog) 0 units SC .MODERATE SLIDING SC PRN PRN Reason: Moderate Correctional Scale Insulin Human Lispro (Humalog) 0 units SC .BEDTIME SLIDING SC PRN PRN Reason: Bedtime Correctional Scale Last Admin: 02/22/18 20:16 Dose: 3 unit Iron/Minerals/Multivitamins (Theragran M) 1 tab PO HS [facility] Last Admin: 02/22/18 20:13 Dose: 1 tab Loperamide HCl (Imodium) 2 mg PO PRN PRN PRN Reason: Diarrhea/Loose Stools Loratadine (Claritin) 10 mg PO DAILYPRN PRN PRN Reason: Sinus Symptoms Metformin HCl (Glucophage) 500 mg PO 0800,1700 [facility] Last Admin: 02/23/18 08:14 Dose: 500 mg Mineral Oil/White Petrolatum (Eucerin Cream) 0 gm TOP BIDPRN PRN PRN Reason: Dry Skin Miscellaneous Medication (Pharmacy To Dose) 1 each IVPB ONE PRN PRN Reason: Pharmacy to dose Stop: 03/03/18 15:46 Morphine Sulfate (Morphine) 2 mg SLOW IVP Q4H PRN PRN Reason: Pain Nebivolol (Bystolic) 20 mg PO BID [facility] Last Admin: 02/23/18 08:21 Dose: 20 mg (Dapagliflozin (Farxiga) 0 tab PO QAM [facility] Non-Formulary Medication (Insulin Glargine,Hum.Rec.Anlog [Basaglar Kwikpen U-100 ]) 80 unit SQ QAM [facility] Ondansetron HCl (Zofran Odt) 4 mg PO Q6H PRN PRN Reason: Nausea/Vomiting Ondansetron HCl (Zofran) 4 mg IVP Q6H PRN PRN Reason: Nausea/Vomiting Saccharomyces Boulardii (Florastor) 250 mg PO DAILY [facility] Last Admin: 02/23/18 08:29 Dose: 250 mg Senna/Docusate Sodium (Senokot S) 2 tab PO BID PRN PRN Reason: Constipation Sodium Chloride ([place] Nasal [place] 0.65%) 0 ml EA NARE QIDPRN PRN PRN Reason: Nasal Congestion Zolpidem Tartrate (Ambien) 5 mg PO HSPRN PRN PRN Reason: Insomnia
[2018-02-23 13:40] LABS: Vancomycin, Random 18.2 ug/mL (See Comment)
[2018-02-23] MEDS: Vancomycin HCl 1.25 GM in Sodium Chloride 0.9% 250 ML 250 ML IVPB SCH (14:11)
[2018-02-23] MEDS: Atorvastatin Calcium 40 MG TAB PO SCH (20:50)
[2018-02-23] MEDS: Atorvastatin Calcium 10 MG TAB PO SCH (20:50)
[2018-02-23] MEDS: Multivitamin W/ Minerals 1 TAB PO SCH (20:50)
[2018-02-24] MEDS: Piperacillin/Tazobactam 4.5 GM in Sodium Chloride 0.9% 100 ML IVPB SCH ×4 (00:16→17:16)
[2018-02-24] MEDS: Vancomycin HCl 1.25 GM in Sodium Chloride 0.9% 250 ML 250 ML IVPB SCH ×2 (01:37→14:13)
[2018-02-24] MEDS: HYDROcodone/Acetaminophen 5/325 mg Tablet PO PRN (01:43)
[2018-02-24] MEDS: Famotidine 20 MG TAB PO SCH ×2 (07:50→20:43)
[2018-02-24] MEDS: metFORMIN 500 MG TAB PO SCH ×2 (07:50→17:15)
[2018-02-24] MEDS: Saccharomyces boulardii 250 MG CAP PO SCH (07:50)
[2018-02-24] MEDS: Aspirin 325 MG TAB PO SCH (07:50)
[2018-02-24] MEDS: Amlodipine 10 MG TAB PO SCH (07:50)
[2018-02-24] MEDS: Enoxaparin Sodium 40 MG/0.4 ML SYRINGE SC SCH (07:51)
[2018-02-24] MEDS: Nebivolol HCl 5 MG TAB PO SCH ×2 (07:51→21:06)
--- NOTE | 2018-02-24 10:14 | PDOC.PN ---
- Subjective Encounter Start Date: 02/24/18 Encounter Start Time: 09:40 Patient seen and examined. No new complaints. No overnight events - Objective Resuscitation Status: Resuscitation Status FULL:Full Resuscitation MAR Reviewed: Yes Vital Signs & Weight: Vital Signs (12 hours) Temp Pulse Resp BP BP Pulse Ox 02/24/18 09:52 143/78 H 02/24/18 08:00 98.6 F 81 18 143/78 H 95 02/24/18 07:50 81 143/78 H 02/23/18 22:30 95 Weight Admit Weight 365 lb 8 oz Weight 365 lb 8 oz I&O: 02/23/18 02/24/18 02/25/18 06:59 06:59 06:59 Intake Total 3150 Output Total 1700 Balance 1450 Result Diagrams: 02/22/18 03:50 02/22/18 03:50 Additional Labs: Accuchecks 02/24/18 02/23/18 02/23/18 04:41 20:46 15:46 POC Glucose 86 152 H 228 H 02/23/18 11:16 POC Glucose 245 H Phys Exam - Physical Examination Constitutional: NAD HEENT: PERRLA, moist MMs, sclera anicteric Neck: no JVD, supple Respiratory: no wheezing, no rales, no rhonchi Cardiovascular: RRR, no significant murmur, no rub Gastrointestinal: soft, non-tender, no distention, positive bowel sounds Musculoskeletal: no edema, pulses present left foot with dressing Neurological: non-focal, normal sensation, moves all 4 limbs Lymphatic: no nodes Psychiatric: normal affect, A&O x 3 Skin: no rash, normal turgor Dx/Plan (1) Acute osteomyelitis of toe of left foot Code(s): M86.172 - OTHER ACUTE OSTEOMYELITIS, LEFT ANKLE AND FOOT Status: Acute (2) Abnormal LFTs Code(s): R94.5 - ABNORMAL RESULTS OF LIVER FUNCTION STUDIES Status: Acute Comment: s/p toe amputation, left great toe (3) Anemia, normocytic normochromic Code(s): D64.9 - ANEMIA, UNSPECIFIED Status: Chronic (4) Diabetes type 2, controlled Code(s): E11.9 - TYPE 2 DIABETES MELLITUS WITHOUT COMPLICATIONS Status: Chronic (5) Dyslipidemia Code(s): E78.5 - HYPERLIPIDEMIA, UNSPECIFIED Status: Chronic (6) GERD (gastroesophageal reflux disease) Code(s): K21.9 - GASTRO-ESOPHAGEAL REFLUX DISEASE WITHOUT ESOPHAGITIS Status: Chronic (7) Hypertension Code(s): I10 - ESSENTIAL (PRIMARY) HYPERTENSION Status: Chronic (8) Morbid obesity with BMI of 40.0-44.9, adult Code(s): E66.01 - MORBID (SEVERE) OBESITY DUE TO EXCESS CALORIES; Z68.41 - BODY MASS INDEX (BMI) 40.0-44.9, ADULT Status: Chronic (9) ANDREW (obstructive sleep apnea) Code(s): G47.33 - OBSTRUCTIVE SLEEP APNEA (ADULT) (PEDIATRIC) Status: Chronic Comment: on CPAP - Plan cont current plan of care, continue antibiotics * follow up on pathology report for margin, if clear then will discharge with oral antibiotics * if margin not intact, then will consult ID * medication reviewed as below * symptomatic treatment * wound care * continue vanco and zosyn. Review of Systems - Review of Systems Eyes: negative: Pain, Vision Change, Conjunctivae Inflammation, Eyelid Inflammation, Redness, Other ENT: negative: Ear Pain, Ear Discharge, Nose Pain, Nose Discharge, Nose Congestion, Mouth Pain, Mouth Swelling, Throat Pain, Throat Swelling, Other Respiratory: negative: Cough, Dry, Shortness of Breath, Hemoptysis, SOB with Excertion, Pleuritic Pain, Sputum, Wheezing Cardiovascular: negative: chest pain, palpitations, orthopnea, paroxysmal nocturnal dyspnea, edema, light headedness, other Gastrointestinal: negative: Nausea, Vomiting, Abdominal Pain, Diarrhea, Constipation, Melena, Hematochezia, Other Genitourinary: negative: Dysuria, Frequency, Incontinence, Hematuria, Retention , Other Musculoskeletal: negative: Neck Pain, Shoulder Pain, Arm Pain, Back Pain, Hand Pain, Leg Pain, Foot Pain, Other - Medications/Allergies Allergies/Adverse Reactions: Allergies Allergy/AdvReac Type Severity Reaction Status Date / Time iodine Allergy Verified 12/13/15 16:12 latex Allergy Verified 12/13/15 16:12 shellfish derived Allergy Verified 12/13/15 16:12 Medications: Current Medications Acetaminophen (Tylenol) 650 mg PO Q4H PRN PRN Reason: Headache/Fever/Mild Pain (1-3) Hydrocodone Bitart/Acetaminophen ([place] 5/325) 1 tab PO Q4H PRN PRN Reason: Moderate Pain (4-6) Last Admin: 02/24/18 01:43 Dose: 1 tab Amlodipine Besylate (Norvasc) 10 mg PO DAILY [facility] Last Admin: 02/24/18 07:50 Dose: 10 mg Artificial Tears (Tears Naturale) 2 drop EA EYE PRN PRN PRN Reason: Dry Eyes Aspirin (Aspirin) [facility] [place] Last Admin: 02/24/18 07:50 Dose: 325 mg Atorvastatin Calcium (Lipitor) 40 mg PO [facility] Last Admin: 02/23/18 20:50 Dose: 40 mg Atorvastatin Calcium (Lipitor) 10 mg PO HS [facility] Last Admin: 02/23/18 20:50 Dose: 10 mg Benazepril HCl (Lotensin) [address] [facility] Last Admin: 02/24/18 09:52 Dose: 40 mg Bisacodyl (Dulcolax) 10 mg PO DAILYPRN PRN PRN Reason: Constipation Bisacodyl (Dulcolax) 10 mg [place] DAILYPRN PRN PRN Reason: Constipation Calcium Carbonate (Tums) 1,000 mg PO Q4H PRN PRN Reason: Heartburn or Indigestion Cholecalciferol (Vitamin D3) 5,000 units PO [facility] Last Admin: 02/23/18 20:45 Dose: 5,000 units Dextrose/Water (Dextrose 50%) 25 gm SLOW IVP PRN PRN PRN Reason: Hypoglycemia Enoxaparin Sodium (Lovenox) 40 mg SC 0900 [facility] Last Admin: 02/24/18 07:51 Dose: 40 mg Famotidine (Pepcid) 20 mg PO BID [facility] Last Admin: 02/24/18 07:50 Dose: 20 mg Glucagon (Glucagon) 1 mg IM PRN PRN PRN Reason: Hypoglycemia Guaifenesin (Robitussin Sf) 200 mg PO Q4H PRN PRN Reason: Cough Hydralazine HCl (Apresoline) 10 mg SLOW IVP Q4H PRN PRN Reason: SBP > 180 and HR < 70 Dextrose/Water (D5w) 1,000 mls @ 0 mls/hr IV .Q0M PRN PRN Reason: Hypoglycemia Piperacillin Sod/Tazobactam (Sod 4.5 gm/ Sodium Chloride) 100 mls @ 200 mls/hr IVPB Q6HR [facility] Last Admin: 02/24/18 05:19 Dose: 100 mls Vancomycin HCl 1.25 gm/ Sodium (Chloride) 250 mls @ 125 mls/hr IVPB 0200,1400 [facility] Last Admin: 02/24/18 01:37 Dose: 250 mls Insulin Human Lispro (Humalog) 0 units SC .MODERATE SLIDING SC PRN PRN Reason: Moderate Correctional Scale Insulin Human Lispro (Humalog) 0 units SC .BEDTIME SLIDING SC PRN PRN Reason: Bedtime Correctional Scale Last Admin: 02/22/18 20:16 Dose: 3 unit Iron/Minerals/Multivitamins (Theragran M) 1 tab PO HS [facility] Last Admin: 02/23/18 20:50 Dose: 1 tab Loperamide HCl (Imodium) 2 mg PO PRN PRN PRN Reason: Diarrhea/Loose Stools Loratadine (Claritin) 10 mg PO DAILYPRN PRN PRN Reason: Sinus Symptoms Metformin HCl (Glucophage) 500 mg PO 0800,1700 [facility] Last Admin: 02/24/18 07:50 Dose: 500 mg Mineral Oil/White Petrolatum (Eucerin Cream) 0 gm TOP BIDPRN PRN PRN Reason: Dry Skin Miscellaneous Medication (Pharmacy To Dose) 1 each IVPB ONE PRN PRN Reason: Pharmacy to dose Stop: 03/03/18 15:46 Morphine Sulfate (Morphine) 2 mg SLOW IVP Q4H PRN PRN Reason: Pain Nebivolol (Bystolic) 20 mg PO BID [facility] Last Admin: 02/24/18 07:51 Dose: 20 mg (Dapagliflozin (Farxiga) 0 tab PO QAM [facility] Non-Formulary Medication (Insulin Glargine,Hum.Rec.Anlog [Basaglar Kwikpen U-100 ]) 80 unit SQ QAM [facility] Ondansetron HCl (Zofran Odt) 4 mg PO Q6H PRN PRN Reason: Nausea/Vomiting Ondansetron HCl (Zofran) 4 mg IVP Q6H PRN PRN Reason: Nausea/Vomiting Saccharomyces Boulardii (Florastor) 250 mg PO DAILY [facility] Last Admin: 02/24/18 07:50 Dose: 250 mg Senna/Docusate Sodium (Senokot S) 2 tab PO BID PRN PRN Reason: Constipation Sodium Chloride ([place] Nasal [place] 0.65%) 0 ml EA NARE QIDPRN PRN PRN Reason: Nasal Congestion Zolpidem Tartrate (Ambien) 5 mg PO HSPRN PRN PRN Reason: Insomnia
[2018-02-24] MEDS: Atorvastatin Calcium 40 MG TAB PO SCH (20:43)
[2018-02-24] MEDS: Multivitamin W/ Minerals 1 TAB PO SCH (20:43)
[2018-02-24] MEDS: Atorvastatin Calcium 10 MG TAB PO SCH (20:43)
[2018-02-25] MEDS: Piperacillin/Tazobactam 4.5 GM in Sodium Chloride 0.9% 100 ML IVPB SCH ×3 (00:09→12:10)
[2018-02-25 01:32] LABS: Vancomycin, Trough 24.6 ug/mL
[2018-02-25] MEDS ORDERED: Vancomycin HCl 1 GM in Premix Bag 1 BAG IVPB SCH (08:00)
[2018-02-25] MEDS: Saccharomyces boulardii 250 MG CAP PO SCH (08:02)
[2018-02-25] MEDS: Enoxaparin Sodium 40 MG/0.4 ML SYRINGE SC SCH (08:02)
[2018-02-25] MEDS: metFORMIN 500 MG TAB PO SCH (08:03)
[2018-02-25] MEDS: Nebivolol HCl 5 MG TAB PO SCH (08:03)
[2018-02-25] MEDS: Famotidine 20 MG TAB PO SCH (08:03)
[2018-02-25] MEDS: Amlodipine 10 MG TAB PO SCH (08:03)
[2018-02-25] MEDS: Aspirin 325 MG TAB PO SCH (08:03)
--- NOTE | 2018-02-25 10:00 | PDOC.PN ---
- Subjective Encounter Start Date: 02/25/18 Encounter Start Time: 08:40 Patient seen and examined. No new complaints. No overnight events - Objective Resuscitation Status: Resuscitation Status FULL:Full Resuscitation MAR Reviewed: Yes Vital Signs & Weight: Vital Signs (12 hours) Pulse BP Pulse Ox 02/25/18 08:03 87 143/78 H 02/25/18 03:00 95 Weight Admit Weight 365 lb 8 oz Weight 365 lb 8 oz I&O: 02/24/18 02/25/18 02/26/18 06:59 06:59 06:59 Intake Total 3150 Output Total 1700 Balance 1450 Result Diagrams: 02/22/18 03:50 02/22/18 03:50 Additional Labs: Accuchecks 02/25/18 02/24/18 02/24/18 05:02 20:33 16:15 POC Glucose 60 L 92 116 H 02/24/18 12:39 POC Glucose 133 H Phys Exam - Physical Examination Constitutional: NAD HEENT: PERRLA, moist MMs, sclera anicteric Neck: no JVD, supple Respiratory: no wheezing, no rales, no rhonchi Cardiovascular: RRR, no significant murmur, no rub Gastrointestinal: soft, non-tender, no distention, positive bowel sounds Musculoskeletal: no edema, pulses present left foot with dressing Neurological: non-focal, normal sensation, moves all 4 limbs Psychiatric: normal affect, A&O x 3 Skin: no rash, normal turgor Dx/Plan (1) Acute osteomyelitis of toe of left foot Code(s): M86.172 - OTHER ACUTE OSTEOMYELITIS, LEFT ANKLE AND FOOT Status: Acute (2) Abnormal LFTs Code(s): R94.5 - ABNORMAL RESULTS OF LIVER FUNCTION STUDIES Status: Acute Comment: s/p toe amputation, left great toe (3) Anemia, normocytic normochromic Code(s): D64.9 - ANEMIA, UNSPECIFIED Status: Chronic (4) Diabetes type 2, controlled Code(s): E11.9 - TYPE 2 DIABETES MELLITUS WITHOUT COMPLICATIONS Status: Chronic (5) Dyslipidemia Code(s): E78.5 - HYPERLIPIDEMIA, UNSPECIFIED Status: Chronic (6) GERD (gastroesophageal reflux disease) Code(s): K21.9 - GASTRO-ESOPHAGEAL REFLUX DISEASE WITHOUT ESOPHAGITIS Status: Chronic (7) Hypertension Code(s): I10 - ESSENTIAL (PRIMARY) HYPERTENSION Status: Chronic (8) Morbid obesity with BMI of 40.0-44.9, adult Code(s): E66.01 - MORBID (SEVERE) OBESITY DUE TO EXCESS CALORIES; Z68.41 - BODY MASS INDEX (BMI) 40.0-44.9, ADULT Status: Chronic (9) ANDREW (obstructive sleep apnea) Code(s): G47.33 - OBSTRUCTIVE SLEEP APNEA (ADULT) (PEDIATRIC) Status: Chronic Comment: on CPAP - Plan cont current plan of care, continue antibiotics * medication reviewed as below * symptomatic treatment * see discharge pablo. Review of Systems - Review of Systems ENT: negative: Ear Pain, Ear Discharge, Nose Pain, Nose Discharge, Nose Congestion, Mouth Pain, Mouth Swelling, Throat Pain, Throat Swelling, Other Respiratory: negative: Cough, Dry, Shortness of Breath, Hemoptysis, SOB with Excertion, Pleuritic Pain, Sputum, Wheezing Cardiovascular: negative: chest pain, palpitations, orthopnea, paroxysmal nocturnal dyspnea, edema, light headedness, other Gastrointestinal: negative: Nausea, Vomiting, Abdominal Pain, Diarrhea, Constipation, Melena, Hematochezia, Other Genitourinary: negative: Dysuria, Frequency, Incontinence, Hematuria, Retention , Other Musculoskeletal: negative: Neck Pain, Shoulder Pain, Arm Pain, Back Pain, Hand Pain, Leg Pain, Foot Pain, Other - Medications/Allergies Allergies/Adverse Reactions: Allergies Allergy/AdvReac Type Severity Reaction Status Date / Time iodine Allergy Verified 12/13/15 16:12 latex Allergy Verified 12/13/15 16:12 shellfish derived Allergy Verified 12/13/15 16:12 Medications: Current Medications Acetaminophen (Tylenol) 650 mg PO Q4H PRN PRN Reason: Headache/Fever/Mild Pain (1-3) Hydrocodone Bitart/Acetaminophen ([place] 5/325) 1 tab PO Q4H PRN PRN Reason: Moderate Pain (4-6) Last Admin: 02/24/18 01:43 Dose: 1 tab Amlodipine Besylate (Norvasc) 10 mg PO DAILY [facility] Last Admin: 02/25/18 08:03 Dose: 10 mg Artificial Tears (Tears Naturale) 2 drop EA EYE PRN PRN PRN Reason: Dry Eyes [facility]) [facility] [place] Admin: 02/25/18 08:03 Dose: 325 mg Atorvastatin Calcium (Lipitor) 40 mg PO HS [facility] Last Admin: 02/24/18 20:43 Dose: 40 mg Atorvastatin Calcium (Lipitor) 10 mg PO HS [facility] Last Admin: 02/24/18 20:43 Dose: 10 mg Benazepril HCl (Lotensin) 40 mg PO QAM [facility] Last Admin: 02/25/18 08:03 Dose: 40 mg Bisacodyl (Dulcolax) 10 mg PO DAILYPRN PRN PRN Reason: Constipation Bisacodyl (Dulcolax) 10 mg [place] DAILYPRN PRN PRN Reason: Constipation Calcium Carbonate (Tums) 1,000 mg PO Q4H PRN PRN Reason: Heartburn or Indigestion Cholecalciferol (Vitamin D3) 5,000 units PO [facility] Last Admin: 02/24/18 20:43 Dose: 5,000 units Dextrose/Water (Dextrose 50%) 25 gm SLOW IVP PRN PRN PRN Reason: Hypoglycemia Enoxaparin Sodium (Lovenox) 40 mg SC 0900 [facility] Last Admin: 02/25/18 08:02 Dose: 40 mg Famotidine (Pepcid) 20 mg PO BID [facility] Last Admin: 02/25/18 08:03 Dose: 20 mg Glucagon (Glucagon) 1 mg IM PRN PRN PRN Reason: Hypoglycemia Guaifenesin (Robitussin Sf) 200 mg PO Q4H PRN PRN Reason: Cough Hydralazine HCl (Apresoline) 10 mg SLOW IVP Q4H PRN PRN Reason: SBP > 180 and HR < 70 Dextrose/Water (D5w) 1,000 mls @ 0 mls/hr IV .Q0M PRN PRN Reason: Hypoglycemia Piperacillin Sod/Tazobactam (Sod 4.5 gm/ Sodium Chloride) 100 mls @ 200 mls/hr IVPB Q6HR [facility] Last Admin: 02/25/18 05:26 Dose: 100 mls Vancomycin HCl 1 gm/ Device 200 mls @ 200 mls/hr IVPB 0800,2000 [facility] Last Admin: 02/25/18 08:02 Dose: 200 mls Insulin Human Lispro (Humalog) 0 units SC .MODERATE SLIDING SC PRN PRN Reason: Moderate Correctional Scale Insulin Human Lispro (Humalog) 0 units SC .BEDTIME SLIDING SC PRN PRN Reason: Bedtime Correctional Scale Last Admin: 02/22/18 20:16 Dose: 3 unit Iron/Minerals/Multivitamins (Theragran M) 1 tab PO HS [facility] Last Admin: 02/24/18 20:43 Dose: 1 tab Loperamide HCl (Imodium) 2 mg PO PRN PRN PRN Reason: Diarrhea/Loose Stools Loratadine (Claritin) 10 mg PO DAILYPRN PRN PRN Reason: Sinus Symptoms Metformin HCl (Glucophage) 500 mg PO 0800,1700 [facility] Last Admin: 02/25/18 08:03 Dose: 500 mg Mineral Oil/White Petrolatum (Eucerin Cream) 0 gm TOP BIDPRN PRN PRN Reason: Dry Skin Miscellaneous Medication (Pharmacy To Dose) 1 each IVPB ONE PRN PRN Reason: Pharmacy to dose Stop: 03/03/18 15:46 Morphine Sulfate (Morphine) 2 mg SLOW IVP Q4H PRN PRN Reason: Pain Nebivolol (Bystolic) 20 mg PO BID [facility] Last Admin: 02/25/18 08:03 Dose: 20 mg (Dapagliflozin (Farxiga) 0 tab PO QAM [facility] Non-Formulary Medication (Insulin Glargine,Hum.Rec.Anlog [Basaglar Kwikpen U-100 ]) 80 unit SQ QAM [facility] Ondansetron HCl (Zofran Odt) 4 mg PO Q6H PRN PRN Reason: Nausea/Vomiting Ondansetron HCl (Zofran) 4 mg IVP Q6H PRN PRN Reason: Nausea/Vomiting Saccharomyces Boulardii (Florastor) 250 mg PO DAILY [facility] Last Admin: 02/25/18 08:02 Dose: 250 mg Senna/Docusate Sodium (Senokot S) 2 tab PO BID PRN PRN Reason: Constipation Sodium Chloride ([place] Nasal [place] 0.65%) 0 ml EA NARE QIDPRN PRN PRN Reason: Nasal Congestion Zolpidem Tartrate (Ambien) 5 mg PO HSPRN PRN PRN Reason: Insomnia
--- NOTE | 2018-02-25 10:56 | DIS ---
PRIMARY CARE PHYSICIAN: Dr. Helen Burr DATE OF ADMISSION: 02/21/2018 DATE OF DISCHARGE: 02/25/2018 DISCHARGE DISPOSITION: Home. PRIMARY DISCHARGE DIAGNOSES: Left great toe osteomyelitis status post toe amputation. SECONDARY DISCHARGE DIAGNOSES: Morbid obesity with body mass index 44, obstructive sleep apnea, hype rtension, diabetes type 2, gastroesophageal reflux disease, dyslipidemia, normocytic normochromic ane fantasma. PRIMARY PROCEDURE/OPERATION: The patient had a left great toe amputation by Dr. Abdelrahman Driver. RADIOLOGICAL INVESTIGATION: Foot x-ray showed osteomyelitis of left great toe. Repeat x-ray of foot was performed after surgery. SIGNIFICANT LABORATORY DATA: WBC 8.9, hemoglobin 9.4, platelets 353. INR 1.0. Sodium 140, potassi um 4.3, BUN 10, creatinine 0.97, calcium 8.7, AST 37, ALT 53, alkaline phosphatase 140. Hepatitis pr ofile negative. Wound culture grew polymicrobial bacteria. Blood culture negative. DISCHARGE MEDICATIONS: Augmentin 875 mg twice daily for 10 days, Cipro 500 mg p.o. twice daily for 1 0 days, Florastor 250 mg p.o. daily for 10 days. The patient will continue all his previous home medication which are as follows; exenatide 2 mg subcu every 7 days, amlodipine with benazepril 10/40 one capsule daily, aspirin 325 mg p.o. daily, vitamin D3 5000 unit p.o. daily, Farxiga 10 mg daily, Nexium 40 mg daily, Lantus insulin 80 units subcu niru y, metformin ER 500 mg p.o. daily. Multivitamin 1 tablet p.o. daily, Bystolic 20 mg p.o. b.i.d., Zoc or 20 mg p.o. at bedtime. CONTRAINDICATIONS: None. CODE STATUS: FULL CODE. INPATIENT CONSULTANTS: Dr. Abdelrahman Driver was following while in hospital. TEST RESULTS PENDING ON DISCHARGE: Pathology report from surgical amputation site. ALLERGIES: IODINE, LATEX, SHELLFISH. DISCHARGE PLAN: Post hospital, the patient has appointment with Dr. Abdelrahman Driver on Saturday02/29/20 18. Patient's buoy tender is advised to follow up on pathology report from amputation site. If lorin n is not clean, then the patient will need outpatient ID consultation and possible antibiotic therapy IV. HOSPITAL COURSE: The patient is a 62-year-old male who had a mechanical trip and injured his left gr eat toe. Since then he was having ulcer and he was following with Wound Care Team for wound care, bu t wound was not improving and it was getting worse. [facility] the patient had foot x-ray which showed acute osteomyelitis and that is why he was advised to go to the hospital and admitted. The next day Dr. Abdelrahman Driver did a toe amputation. While in hospital, the patient received broad s pectrum antibiotic therapy with vancomycin and Zosyn. On discharge based on culture result, we alicea ed to Augmentin and Cipro. Pathology report from the surgical site is pending and we will defer that part to buoy tender. This patient already has appointment with Dr. Driver on this Saturday. At that time, wound dressing will be changed and necessary wound care was discussed with the patient. The patient will continue all his previous medication and new medication prescription given. The patient is seen and examined at bedside today. Please see my progress note from today for furthe r details.
[2018-02-25 10:57] VITALS: BP 152/82; TEMP 97.9
== END 2018-02-25 14:21 | disposition home or self-care (01) | DRG 617 ==
LOC: ERS 10:41 → T4-B 15:42
PROVIDERS: ADMIT Internal Medicine; ATTEND Internal Medicine
PROC: 0Y6Q0Z0 Detachment at Left 1st Toe, Complete, Open Approach (ICD-10-PCS; principal; 2018-02-21)
DX: E11.69 Type 2 diabetes mellitus with other specified complication (principal); M86.172 Other acute osteomyelitis, left ankle and foot; Z68.41 Body mass index [BMI] 40.0-44.9, adult; L03.116 Cellulitis of left lower limb; E11.52 Type 2 diabetes mellitus with diabetic peripheral angiopathy with gangrene; I96 Gangrene, not elsewhere classified; R94.5 Abnormal results of liver function studies; D64.9 Anemia, unspecified; E78.5 Hyperlipidemia, unspecified; K21.9 Gastro-esophageal reflux disease without esophagitis; I10 Essential (primary) hypertension; E66.01 Morbid (severe) obesity due to excess calories; G47.33 Obstructive sleep apnea (adult) (pediatric); Z87.891 Personal history of nicotine dependence; Z91.81 History of falling; E11.621 Type 2 diabetes mellitus with foot ulcer; L97.529 Non-pressure chronic ulcer of other part of left foot with unspecified severity; I48.0 Paroxysmal atrial fibrillation
CPT/HCPCS: 36415; 36416; 80048; 80053; 80074; 80076; 80202; 83605; 85025; 85610; 85730; 87040; 87070; 87076; 87077; 87186; 87205; 88305; 88311; 94660; 96361; 96365; 96367; A4218; J1650; J2001; J2405; J2543; J2704; J3010; J3370; J7050; S0020

== ENCOUNTER 2018-02-28 09:32 | Outpatient (CLI) | payer BC ==
--- NOTE | 2018-02-28 10:27 | PRG ---
DATE OF SERVICE: 02/28/2018 SUBJECTIVE: This is a 62-year-old male returns to the clinic 1 week status post left great toe amput ation with primary closure. Denies acute events since last visit. He has kept the dressing clean, d ry and intact. PHYSICAL EXAMINATION: On removal of the dressing, the sutures are intact. No periwound erythema, ed vi or warmth. There is some mild dehiscence on the most lateral aspect of the incision, superficial in nature. ASSESSMENT: Status post left great toe amputation, doing well. PLAN: Dressing was changed today, will be kept in place for the next 2 weeks and then we will remove the stitches. He is to keep this dressing clean, dry, and intact until follow up. He understands t hat if it does become soiled or wet he is to call our office for a change.
[2018-02-28] MEDS ORDERED: Sodium Chloride 0.9% 15 ML NEB ONE (18:37)
== END 2018-02-28 09:33 | disposition home or self-care (01) ==
LOC: WCC 09:32
PROVIDERS: ATTEND Podiatrist Foot & Ankle Surgery
DX: Z47.81 Encounter for orthopedic aftercare following surgical amputation (principal); Z89.412 Acquired absence of left great toe
CPT/HCPCS: 36416; 97602; A4218

== ENCOUNTER 2018-03-14 09:19 | Outpatient (CLI) | payer BC ==
[~2018-03-14 09:19] MED LIST: Sodium Chloride 0.9% 15 ML NEB ONE
--- NOTE | 2018-03-14 18:35 | PRG ---
DATE OF SERVICE: 03/14/2018 WOUND CLINIC NOTE SUBJECTIVE: A 62-year-old male, returns today status post left hallux amputation. He is 3 weeks status post left great toe amputation. He had no problems since last visit. OBJECTIVE: Sutures are intact. Wound is well coapted. No signs of necrosis or dehiscence. After removal of the sutures, there is a small dehisced area measuring 1.5 cm x 0.3 cm granular wound base. 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 PLAN: Sutures were removed. Full-thickness debridement of the dehisced area performed. Going to start daily collagen dressing changes on this site. He will follow up with me in 2 weeks. Job ID: [id number]
== END 2018-03-14 09:20 | disposition home or self-care (01) ==
LOC: WCC 09:19
PROVIDERS: ATTEND Podiatrist Foot & Ankle Surgery
DX: L97.529 Non-pressure chronic ulcer of other part of left foot with unspecified severity (principal); Z89.412 Acquired absence of left great toe
CPT/HCPCS: A4218

== ENCOUNTER 2018-03-28 09:29 | Outpatient (CLI) | payer BC ==
--- NOTE | 2018-03-28 15:07 | PRG ---
DATE OF SERVICE: 03/28/2018 PODIATRY WOUND CLINIC NOTE SUBJECTIVE: A 62-year-old male returns today for followup, status post left hallux amputation. He has had no problems over the last week, has been doing Aquacel and Tegaderm pads. Denies nausea, vomiting, fevers, or chills. OBJECTIVE: Amputation site has a small area of dehiscence measuring 6 mm x 3 mm on the most lateral aspect of the incision. Rest of the incision was covered in eschar was intact healed underlying skin. No periwound, erythema, edema, or warmth. No purulent drainage. No wounds probed deep to tendon or bone. ASSESSMENT: Status post left hallux amputation with small area of dehiscence. PLAN: All eschar was cleaned away from the incisional site today. We will start dressing this area with a daily collagen dressing, and he will follow up with me in one week or sooner should he have problems before that time. Job ID: [id number]
== END 2018-03-28 09:30 | disposition home or self-care (01) ==
LOC: WCC 09:29
PROVIDERS: ATTEND Podiatrist Foot & Ankle Surgery
DX: T87.81 Dehiscence of amputation stump (principal); Z89.412 Acquired absence of left great toe
CPT/HCPCS: 97602; A4218

== ENCOUNTER 2018-04-04 09:24 | Outpatient (CLI) | payer BC ==
[2018-04-04] MEDS ORDERED: Sodium Chloride 0.9% 15 ML NEB ONE (14:06)
--- NOTE | 2018-04-04 16:01 | PRG ---
DATE OF SERVICE: 04/04/2018 SUBJECTIVE: A 62-year-old male returns today, status post left great toe amputation. He has done well over the last week. He has been using collagen bandages on a daily basis. No acute events since the last visit. OBJECTIVE: Ulceration remains on the distal stump of the left great toe amputation site measuring 1.4 cm x 0.5 cm x 0.1 cm in depth, 100% granular tissue. No periwound erythema, edema, or warmth. 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 PLAN: Full-thickness debridement of subcutaneous tissue layer removing all nonviable tissue and biofilm from the wound base down to bleeding granular wound base. Going to continue with daily collagen dressing changes and follow up with him in one week. Job ID: [id number]
== END 2018-04-04 09:25 | disposition home or self-care (01) ==
LOC: WCC 09:24
PROVIDERS: ATTEND Podiatrist Foot & Ankle Surgery
DX: L97.529 Non-pressure chronic ulcer of other part of left foot with unspecified severity (principal); Z89.412 Acquired absence of left great toe
CPT/HCPCS: A4218

== ENCOUNTER 2018-04-11 09:30 | Outpatient (CLI) | payer BC ==
--- NOTE | 2018-04-11 16:13 | PRG ---
DATE OF SERVICE: 04/11/2018 SUBJECTIVE: A 62-year-old male returns today for a wound to the left great toe amputation site, has done well over the last week. He has continued the dressing changes as I ordered. No acute events. OBJECTIVE: Dehisced area of the left great toe amputation site has healed. There are no current wounds. No signs of infection. ASSESSMENT: Non pressure chronic ulceration to the left great toe, status post left great toe amputation has healed. PLAN: 1. The patient can begin moisturizing the foot on a daily basis. 2. He may return to work without restrictions as of April 16, 2018. 3. Recommended follow up with Dr. Arcos or myself for routine foot care. He says he does have that scheduled for next Saturday with Dr. Arcos. He should return if he has any other concerns or problems. Job ID: [id number]
== END 2018-04-11 09:31 | disposition home or self-care (01) ==
LOC: WCC 09:30
PROVIDERS: ATTEND Podiatrist Foot & Ankle Surgery
DX: L97.529 Non-pressure chronic ulcer of other part of left foot with unspecified severity (principal); Z89.412 Acquired absence of left great toe
CPT/HCPCS: 97602

== ENCOUNTER 2020-10-20 12:13 | Outpatient (CLI) | payer BC | END 2020-10-20 12:14 | disposition home or self-care (01) | LOC: BICRAD 12:13 | PROVIDERS: ATTEND Internal Medicine | DX: R05 Cough (principal); R06.02 Shortness of breath; Z86.16 Personal history of COVID-19 | CPT/HCPCS: 71046 ==